=== PATIENT | male | born 1935 | race Caucasian/White ===

== ENCOUNTER 2017-01-09 08:11 | Day surgery (SDC) | payer MEDICARE ==
[2017-01-09] MEDS ORDERED: LIDOCAINE 2% MDV (20MG/ML) 20ML VIAL IV ONE (08:12)
[2017-01-09] MEDS ORDERED: PROPOFOL 10 MG/ML VIAL IV ONE (08:12)
--- NOTE | 2017-01-10 12:30 | Operative Note ---
DATE OF SURGERY: 01/09/2017 OPERATION: COLONOSCOPY. PREOPERATIVE DIAGNOSIS: Personal history of colon cancer. POSTOPERATIVE DIAGNOSES: 1. Normal-appearing ileocolonic anastomosis. 2. Internal hemorrhoids. PREPARATION QUALITY: Good to excellent. ESTIMATED BLOOD LOSS: None. COMPLICATIONS: None apparent. SPECIMENS: None. PROCEDURE: After informed consent was obtained from the patient, he was placed in the left lateral decubitus position in the endoscopy suite, sedated and monitored by the department of anesthesia. Digital rectal examination was unremarkable. A well-lubricated OHY435 colonoscope was inserted into the rectum and advanced to the cecum. The cecum was actually marked by an ileocolonic anastomosis which appeared unremarkable. The portion of the small bowel was entered and appeared normal. The anastomosis, remaining ascending colon, transverse colon, descending colon, sigmoid colon, and rectum were unremarkable. No polyps, mass lesions, or inflammation was seen. J-turn views of the anorectum revealed some mild internal hemorrhoids. The endoscope was straightened, the rectal ampulla deflated, and the endoscope was removed. RECOMMENDATIONS: The patient should resume his medications and diet. Based on his history of colon cancer, I would recommend a repeat exam in 3 years provided his health will allow. As always, thank you for allowing me to participate in the healthcare of your patients. CC: Dr. Dex MANUEL
== END 2017-01-09 09:41 | disposition home or self-care (01) ==
LOC: HOP 08:11
PROVIDERS: ATTEND Internal Medicine Gastroenterology
DX: Z85.038 Personal history of other malignant neoplasm of large intestine (principal); Z86.010 Personal history of colon polyps; E78.00 Pure hypercholesterolemia, unspecified; K64.8 Other hemorrhoids
CPT/HCPCS: 00810; G0105